=== PATIENT | male | born 1965 | race African-American/Black ===

== ENCOUNTER 2017-01-05 06:28 | Day surgery (SDC) | payer OTHER ==
[~2017-01-05] VITALS: Ht 172.7 cm; Wt 99.8 kg
--- NOTE | ~2017-01-05 | HP ---
PATIENT: SHELLEY TAMEZ MEDICAL RECORD: [id number] ACCOUNT: [id number] LOCATION:[facility] : 69 ADMISSION DATE: 01/05/17 HISTORY AND PHYSICAL EXAMINATION CHIEF COMPLAINT: Bleeding. HISTORY OF PRESENT ILLNESS: The patient has hemorrhoidal problems. He has third-degree anal prolapse of the internal hemorrhoids. The bleeding has been intermittent since 2014. The patient had a colonoscopy in 2015. He underwent a barium enema as well. It was unremarkable. He has had anal pain. His physician felt that he might have an anal fissure. I discussed with him anal evaluation under anesthesia, possible hemorrhoidectomy, possible procedure for prolapse and hemorrhoids, possible lateral internal sphincterotomy, possible fissurectomy and possible fistulotomy. The risks, possible complications and alternatives to procedure were explained to the patient. He elects to proceed. The discussion specifically included, but was not limited to, bleeding requiring emergency reoperation, infection, anal stenosis and fecal incontinence. ALLERGIES: No known drug allergies. HOME MEDICATIONS: Norvasc, hydrochlorothiazide, isosorbide, Zestril, Claritin, Lopressor. SOCIAL HISTORY: Ex-smoker. PAST MEDICAL AND SURGICAL HISTORY: Hypertension, history of tuberculosis in the past. REVIEW OF SYSTEMS: Negative for CVA or seizures. Negative for diabetes or thyroid problems. Negative for renal disease or hepatitis. PHYSICAL EXAMINATION: GENERAL: The patient does not appear acutely ill. He does not appear chronically ill. VITAL SIGNS: Reviewed. HEAD: External ears appear normal. EYES: Extraocular movements are intact. NECK: Trachea is midline. CHEST: No intercostal retractions. PULMONARY: Nonlabored, no stridor. ABDOMEN: Nontender. EXTREMITIES: No peripheral cyanosis. INTEGUMENT: No rash, no ulcerations. IMPRESSION: 1. External hemorrhoidal symptoms. 2. Internal hemorrhoidal bleeding. 3. Anal prolapse with third-degree internal hemorrhoids. PLAN: As described above. TRANSINT:[id number] Voice Confirmation ID: [id number] DOCUMENT ID: [id number] HISTORY AND PHYSICAL [id number] JOISHELLEY KO WELCH MD CC: KO VILLELA MD, ASHER STALEY MD, CINDY BASSETT MD and [id number] DICTATION DATE: 01/05/17 0758 HYPERBARIC TECHNOLOGIST: 01/05/17 0956 [facility] [address] [place] [address]
--- NOTE | ~2017-01-05 | OP ---
PATIENT NAME: SHELLEY TAMEZ MEDICAL RECORD: [id number] :69 LOCATION:D.FORMERLY [facility] ADMISSION DATE: SURGEON: KO WELCH MD DATE OF OPERATION: 01/05/2017 PREOPERATIVE DIAGNOSES: 1. Intractable symptomatic external hemorrhoids. 2. Third-degree internal hemorrhoidal prolapse of the anus. 3. Bleeding internal hemorrhoids. POSTOPERATIVE DIAGNOSES: 1. Intractably symptomatic external hemorrhoids. 2. Third-degree internal hemorrhoids and a single fourth degree internal hemorrhoid prolapsing at the anus. 3. Bleeding internal hemorrhoids, enlarged. 4. No anal fissure. 5. No anal fistula. PROCEDURE: Procedure for prolapse and hemorrhoids. SURGEON: Ko Welch MD ROLL CLAMP OPERATOR: None. BLOOD LOSS: Minimal. ANESTHESIA: General. COMPLICATIONS: None. The risks, possible complications and alternatives to the procedure were explained to the patient. He elects to proceed. OPERATIVE COURSE: The patient was conveyed to the operating room electively on 01/05/2017. General anesthesia was induced by the anesthesia staff. The patient was placed in the lithotomy position. The buttocks were taped laterally. The anus and perianal areas were sterilely prepped and draped. U-shaped anal retractors were placed within the anus after it had been dilated to 3 fingers. There was no anal fistula. No anal fissure. I examined the posterior midline very carefully and I noted no anal fissure. A PPH dilator retractor was placed. The retractor was sewn in place to the surrounding anoderm with 2-0 silks. A mucosal pursestring suture of 2-0 Prolene was applied 1 cm cephalad to the clear retractor. I then advanced the PPH stapling device with the anvil cephalad to the pursestring suture, which was then tightened and tied. The stapling device was engaged. It was held in place for 2 minutes and then fired. The stapling device was removed. There was an entire donut of internal hemorrhoidal tissue as well as rectal mucosal tissue within the stapling device. Bleeding along the anastomotic mucosa staple line was controlled with [id number] 3-0 Vicryls. Some additional internal hemorrhoidal bundles were ligated with [id number] 3-0 Vicryl sutures. There was no further bleeding. Gelfoam was applied to the lower rectum as well as the anus. The perianal tissues were infiltrated with Marcaine as well as a steroid preparation. A topical anesthetic cream was applied to the external hemorrhoids. OPERATIVE REPORT [id number] SHELLEY TAMEZ The patient was then extubated and conveyed to the post-anesthesia care unit where he was in stable condition. It is going to be normal for him to pass the hemostatic packing with his first bowel movement. He is going to be dismissed back to the snf with [place] as well as [facility]. I told him that he will have some bleeding for the next 3 weeks and that will be bleeding not from his internal hemorrhoids, but instead from the operative sites. There is no need for the patient to see me in the office unless he develops a complication related to this operative procedure. The optimal results from this procedure will take about 8 weeks to occur. TRANSINT:[id number] Voice Confirmation ID: [id number] DOCUMENT ID: [id number] KO WELCH MD CC: KO VILLELA MD, ASHER STALEY MD, ANU MALAVE MD, [id number] MD and STANLEY COLLINS DICTATION DATE: 01/05/1733 PUNCH PRESS OPERATOR: 01/05/17 1026 [facility] [address] [place] [id number]
[2017-01-05] MEDS ORDERED: NORVASC10 MG PO (07:03)
[2017-01-05] MEDS ORDERED: DERMAREST (07:04)
[2017-01-05] MEDS ORDERED: HYDROCHLOROTH12.5 M1 PO (07:04)
[2017-01-05] MEDS ORDERED: ZESTRIL40 MG PO (07:05)
[2017-01-05] MEDS ORDERED: ISOSORBIDE MONO30 M1 PO (07:05)
[2017-01-05] MEDS ORDERED: METOPROLOL TART50 MG PO (07:06)
[2017-01-05] MEDS ORDERED: MINERAL OIL25 ML PO (07:06)
[2017-01-05] MEDS ORDERED: CLARITIN 10 MG10 MG PO (07:06)
[2017-01-05 07:11] VITALS: BP 157/107; Ht 172.7 cm; Wt 99.8 kg
[2017-01-05 07:18] LABS: HEMATOCRIT 45.7 % (42.0-54.0); HEMOGLOBIN 14.6 g/dL (13.5-17.5); MCH 26.1 pg (26.0-34.0); MCHC 31.9 g/dL (31.0-37.0); MCV 81.8 fL (80.0-100.0); MEAN PLATELET VOLUME 9.8 fL (7.4-10.4); RBC 5.59 10x6/uL (4.20-6.10); WBC 7.2 10x3/uL (4.8-10.8)
--- NOTE | 2017-01-05 14:57 | NUR ---
1345--PT VOID'S, IV DC'D. YVOANA DURÁN 1405--DISCHARGE INSTRUCTIONS GIVEN, PT VERBALIZES UNDERSTANDING. YOVANA DURÁN 1410--PT AND GUARD OFF UNIT VIA WC. YOVANA DURÁN
== END 2017-01-05 14:10 | disposition home or self-care (01) ==
LOC: EDBD 06:28 → D.OPS 06:28 → EDBD 07:30 → D.OPS 07:30
PROVIDERS: Anesthesiology
DX: K64.3 Fourth degree hemorrhoids (principal); I10 Essential (primary) hypertension; Z86.11 Personal history of tuberculosis; Z79.899 Other long term (current) drug therapy; Z87.891 Personal history of nicotine dependence

== ENCOUNTER → 2017-02-20 07:33 | Outpatient (CLI) | payer OTHER ==
[2017-01-05 07:11] VITALS: BMI 33.5
[~2017-02-20 07:33] MED LIST: CLARITIN 10 MG10 MG PO; DERMAREST; HYDROCHLOROTH12.5 M1 PO; ISOSORBIDE MONO30 M1 PO; METOPROLOL TART50 MG PO; MINERAL OIL25 ML PO; NORVASC10 MG PO; ZESTRIL40 MG PO
== END | disposition home or self-care (01) ==
LOC: D.US 07:33
DX: I10 Essential (primary) hypertension (principal)